=== PATIENT | male | born 1960 | race Caucasian/White ===

== ENCOUNTER 2017-02-17 15:45 | Emergency (ER) | payer OTHER ==
[2017-02-17] MEDS ORDERED: PROPARACAINE 0.5% OPHTH DROPS 15 ML BTL LEFT EYE STA (16:36)
[2017-02-17] MEDS ORDERED: TOBRAMYCIN 0.3% OPHTH DROPS 5 ML BTL LEFT EYE STA (16:49)
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
[2017-02-17 17:20] VITALS: BP 146/76; PULSE 79; RESP 16; TEMP 98.1
== END 2017-02-17 17:20 | disposition home or self-care (01) ==
LOC: EC 15:45
DX: T15.02XA Foreign body in cornea, left eye, initial encounter (principal); Y92.69 Other specified industrial and construction area as the place of occurrence of the external cause; Y99.0 Civilian activity done for income or pay
CPT/HCPCS: 65220; 99283

== ENCOUNTER → 2018-09-09 | Outpatient (CLI) | payer OTHER ==
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
== END | disposition home or self-care (01) ==
LOC: RADXRMAIN 16:13
PROVIDERS: ATTEND Emergency Medicine
DX: M79.89 Other specified soft tissue disorders (principal)